=== PATIENT | female | born 1990 | race Caucasian/White ===

== ENCOUNTER 2016-07-03 10:33 | Outpatient (CLI) | payer OTHER ==
[~2016-07-03] VITALS: Ht 165.1 cm; Wt 88.0 kg
[2016-07-03 10:54] VITALS: Ht 165.1 cm; Wt 88.0 kg
[2016-07-03] MEDS ORDERED: FOLI-49 PO (10:54)
[2016-07-03] MEDS ORDERED: CALC600T11 PO (10:54)
[2016-07-03] MEDS ORDERED: FER325 PO (10:54)
[2016-07-03] MEDS ORDERED: PRENAT PO (10:54)
[2016-07-03 10:55] VITALS: BP 112/59; PULSE 83; RESP 18
--- NOTE | 2016-07-03 13:32 | CONS ---
Date/Time of Note Date/Time of Note DATE: 07/03/16 TIME: 13:25 Consultation Date/Type/Reason Admit Date/Time Initial Consult Date July 03, 2016. OB triage report This patient is a 26 years old 3 para 2; 1 delivery at term and another one premature delivery at 22 weeks gestation which did not survive. She was having a fairly regular periods Her due date is is October 28, 2016 which makes her 23 weeks and 2 days Her main complaint is a generalized abdominal pain since 4 PM yesterday On examination she is a well-developed well-nourished lady in no acute distress her blood pressure 112/59 pulse rate 83 temperature 98.5 and oxygen saturation is 95' her body weight is 88 kg. On examination as I mentioned the abdomen was soft. heart tone is normal. No contraction was noted during this visit she has a slight tenderness of mid abdomen no rebound no CVA tenderness Basically due to negative examination. Reassurance given to the patient and discharged home to be followed in her own clinic. However she was cautioned regarding her condition For any vaginal bleeding or severe pain she should return to the triage for further evaluation 24 HR Interval Summary Constitutional: No chills, No diaphoresis, No disoriented, No febrile, No improved, No no complaints, No other, No poor po, No requiring IVF, No requiring O2 Detailed Summary Eyes: No discharge, No no complaints, No other, No pain, No redness, No visual change ENT: No bleeding, No congestion, No discharge, No dysphagia, No no complaints, No other, No pain, No sore throat Respiratory: No cough, No no complaints, No other, No pain, No pleuritic pain, No shortness of breath, No sputum, No wheezing Cardiovascular: No chest pain, No edema, No lightheadedness, No no complaints, No orthopenea, No other, No palpitations, No paroxysmal nocturnal dyspnea Gastrointestinal: No blood, No constipation, No decreased appetite, No diarrhea , No flatus, No nausea, No no complaints, No other, No pain, No passing stool, No vomiting Genitourinary: No bleeding, No discharge, No dysuria, No flank pain, No hematuria, No no complaints, No other Musculoskeletal: No back pain, No bone/joint pain, No neck pain, No no complaints, No other, No restricted range of motion, No swelling Skin: No bruising, No erythema, No laceration, No no complaints, No other, No pruritis, No rash, No skin lesions Neurologic: No confusion, No dizziness, No focal-weakness, No headache, No no complaints, No other, No seizure, No syncope Endocrine: No dry skin, No no complaints, No other, No polydypsia, No polyuria , No temp intolerance Lymphatic: No adenopathy, No lymphadema, No no complaints, No other, No tender nodes Exam/Review of Systems Vital Signs Vitals Vital Signs Date Time Temp Pulse Resp B/P Pulse Ox O2 Delivery O2 Flow Rate FiO2 07/03/16 10:55 98.5 83 18 112/59 95 Room Air MARLA HARRISON MD Jul 03, 2016 13:32
== END 2016-07-03 11:40 | disposition home or self-care (01) ==
LOC: OBT 10:33 → L-D 10:34 → OBT 11:40
PROVIDERS: ATTEND Obstetrics & Gynecology
DX: O60.02 Preterm labor without delivery, second trimester (principal); Z3A.23 23 weeks gestation of pregnancy
CPT/HCPCS: G0463

== ENCOUNTER 2016-10-16 12:42 | Outpatient (CLI) | payer OTHER ==
[~2016-10-16] VITALS: Ht 165.1 cm; Wt 94.4 kg
[~2016-10-16 12:42] MED LIST: CALC600T11 PO; FER325 PO; FOLI-49 PO; PRENAT PO
--- NOTE | 2016-10-16 13:29 | RADRPT ---
PROCEDURE: US OB biophysical profile. CLINICAL INDICATION: decreased movements TECHNIQUE: Multiple sonographic images of the pelvis were obtained. The images were reviewed on a PACS workstation. COMPARISON: No prior studies are available for comparison. FINDINGS: There is a single viable intrauterine gestation. Cardiac activity is present with 130 beats per min stone. There is a vertex presentation. The placenta is right lateral. There is no evidence of placental abruption. There is a normal amount of amniotic fluid with an LEONIE = 8.2 cm. Biophysical profile: movement 2/2 tone 2/2. breathing 2/2 LEONIE 2/2 Total 12/11 RPTAT: AA . IMPRESSION: Normal biophysical profile. . .Gino Salinas MD, MD Date Time Electronically viewed and signed by .Gino Salinas MD, MD on 10/16/2016 13:29 .S/
[2016-10-16 13:49] VITALS: BP 111/55; PULSE 77; RESP 18; Ht 165.1 cm; Wt 94.4 kg
--- NOTE | 2016-10-16 15:42 | CONS ---
Date/Time of Note Date/Time of Note DATE: 10/16/16 TIME: 15:37 Consultation Date/Type/Reason Admit Date/Time October 16, 2069 OB triage consult Reason for Consultation This patient is a 26 years old 3 para 2 with estimated date of confinement of October 22, 2016 which makes her 38 weeks and 2 days. She came to the triage complaining of low movement since yesterday On examination she is a well-developed well-nourished lady at term in no acute distress Her abdomen is soft fetus appears to be in vertex presentation heart tone is normal tracing is perfect with good variability and acceleration no B- cell Her general vital signs are normal with blood pressure of 111/50, pulse rate 76 , respiration 18, temperature 98.1, and oxygen and room temperature is 96%. Constitutional: No chills, No diaphoresis, No disoriented, No febrile, No improved, No no complaints, No other, No poor po, No requiring IVF, No requiring O2 Eyes: No discharge, No no complaints, No other, No pain, No redness, No visual change ENT: No bleeding, No congestion, No discharge, No dysphagia, No no complaints, No other, No pain, No sore throat Respiratory: no complaints, No cough, No other, No pain, No pleuritic pain, No shortness of breath, No sputum, No wheezing Cardiovascular: No chest pain, No edema, No lightheadedness, No no complaints, No orthopenea, No other, No palpitations, No paroxysmal nocturnal dyspnea Gastrointestinal: No blood, No constipation, No decreased appetite, No diarrhea , No flatus, No nausea, No no complaints, No other, No pain, No passing stool, No vomiting Genitourinary: other (Due to lack of contraction pelvic exam was not performed) , No bleeding, No discharge, No dysuria, No flank pain, No hematuria, No no complaints Musculoskeletal: No back pain, No bone/joint pain, No neck pain, No no complaints, No other, No restricted range of motion, No swelling Skin: No bruising, No erythema, No laceration, No no complaints, No other, No pruritis, No rash, No skin lesions Neurologic: No confusion, No dizziness, No focal-weakness, No headache, No no complaints, No other, No seizure, No syncope Endocrine: No dry skin, No no complaints, No other, No polydypsia, No polyuria , No temp intolerance Additional Comments On ultrasound study the report is a single viable intrauterine gestation with heart activity 130 bpm baby in vertex presentation placenta was on right lateral area no evidence of abruption or previa her amniotic fluid index was reported 8.2 cm the biophysical profile of 12/11 With these positive finding the patient was reassured and was 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 Social History Smoking Status: Never smoker Exam/Review of Systems Vital Signs Vitals Vital Signs Date Time Temp Pulse Resp B/P Pulse Ox O2 Delivery O2 Flow Rate FiO2 10/16/16 13:49 98.1 77 18 111/55 Room Air MARLA HARRISON MD Oct 16, 2016 15:42
--- NOTE | 2016-10-16 16:24 | TRIAGE ---
OB Triage Datetime Report Generated by CPN: 10/16/2016 16:24 Datetime: 10/16/2016 15:34 Labor Evaluation Frequency: X1 Monitor Mode: External Duration (sec)2399: 140 Pattern: Normal: <= 5 Contractions in 10 Minutes Resting Tone Kerr: Relaxed Contraction Comments: PT. DENIES FEELING UC'S OR PAIN Heart Rate FHR Baseline Rate: 125 Monitor Mode: External US Variability: Moderate 6-25 bpm Accelerations: 15X15 Decelerations: None Category: Category I Pain Assessment Pain Presence: None/Denies Datetime: 10/16/2016 15:00 Labor Evaluation Frequency: OCCASSIONAL Monitor Mode: External Duration (sec)2399: 60-120 Pattern: Normal: <= 5 Contractions in 10 Minutes Resting Tone Kerr: Relaxed Contraction Comments: PT. DENIES FEELING UC'S Heart Rate FHR Baseline Rate: 130 Monitor Mode: External US FHR Baseline Changes: No Baseline Change Variability: Moderate 6-25 bpm Accelerations: 15X15 Decelerations: None Category: Category I Pain Assessment Pain Presence: None/Denies Datetime: 10/16/2016 14:02 Labor Evaluation Frequency: X2 Monitor Mode: External Duration (sec)2399: 70-120 Pattern: Normal: <= 5 Contractions in 10 Minutes Resting Tone Kerr: Relaxed Heart Rate FHR Baseline Rate: 130 Monitor Mode: External US Variability: Moderate 6-25 bpm Accelerations: 15X15 Decelerations: None Category: Category I Datetime: 10/16/2016 13:46 Time of Arrival: 10/16/2016 12:40 EGA: 38.2 Arrived By: Ambulatory Arrived From: Home Chief Complaint: DECREASED MOVEMENT Movement: Decreased Contractions: Denies/Absent Rupture of Membranes: Denies Vaginal Bleeding: None Vaginal Discharge: Denies Recent Sexual Intercouse: Denies Abdominal Trauma: Not Applicable Patient Complaints: None Provider Notified: TIMMY Initial Plan: TOCO/US. NST AND BPP Datetime: 10/16/2016 13:10 Pain Assessment Pain Presence: None/Denies Datetime: 10/16/2016 13:07 Monitor Mode: External Monitor Mode: External US Datetime: 07/03/2016 10:52 Stage of : OB Triage Assessment Type: Triage Maternal Assessment Level of Consciousness: Fully Conscious DTR's/Clonus: DTRs 2+; No Clonus Headache: Denies Blurred Vision: No Respiratory Effort: Unlabored; Regular Rhythm; Equal Expansion Breath Sounds, Left: Clear and Equal Breath Sounds, Right: Clear and Equal Nausea/Vomiting: Denies RUQ Epigastric Pain: Denies Lower Extremities Edema: None Degree: None Upper Extremities Edema: None Degree: None Facial Edema: None Fall Risk Assessment History of Falling: (0) No Secondary Diagnosis: (0) No Ambulatory Aid: (0) Bedrest/Nurse Assist IV Therapy: (0) No Gait: (0) Normal/Bedrest/Immobile Mental Status: (0) Oriented to Own Ability Fall Score: 0 Fall Risk Score Definition: No Risk: No action required Datetime: 07/03/2016 10:49 Time of Arrival: 07/03/2016 10:29 EGA: 23.2 Arrived By: Ambulatory Arrived From: Home Chief Complaint: c/o constant soreness with movement Movement: Present Contractions: Denies/Absent Rupture of Membranes: Denies Vaginal Bleeding: None Vaginal Discharge: Denies Recent Sexual Intercouse: Denies Abdominal Trauma: Not Applicable Patient Complaints: None Time Provider Notified: 07/03/2016 11:05 Provider Notified: TIMMY Initial Plan: fht's, TOCO Datetime: 07/03/2016 10:44 Monitor Mode: External US
== END 2016-10-16 16:35 | disposition home or self-care (01) ==
LOC: OBT 12:42 → L-D 12:49 → OBT 16:35
PROVIDERS: ATTEND Obstetrics & Gynecology
DX: O36.8130 Decreased fetal movements, third trimester, not applicable or unspecified (principal); Z3A.38 38 weeks gestation of pregnancy
CPT/HCPCS: 76818; Z7500; G0463

== ENCOUNTER 2016-10-24 05:05 | Inpatient (IN) | payer OTHER ==
[~2016-10-24] VITALS: Ht 165.1 cm; Wt 95.5 kg
[2016-10-24 05:21] VITALS: BP 121/70; PULSE 74; RESP 16; Ht 165.1 cm; Wt 95.5 kg
[2016-10-24] MEDS ORDERED: LACTATED RINGER'S 1,000 ML IV SCH (05:21)
[2016-10-24] MEDS ORDERED: OXYTOCIN 30 UNITS/LR 500 ML IV SCH ×2 (05:30→15:16)
[2016-10-24] MEDS ORDERED: MISOPROSTOL 200 MCG TAB PR PRN ×2 (05:30→15:30)
[2016-10-24] MEDS ORDERED: OXYTOCIN 30 UNITS/LR 500 ML IV PRN ×2 (05:30→15:30)
[2016-10-24] MEDS ORDERED: METHYLERGONOVINE 0.2 MG INJ IM PRN ×2 (05:30→15:30)
[2016-10-24] MEDS ORDERED: CARBOPROST 250 MCG INJ IM PRN ×2 (05:30→15:30)
[2016-10-24] MEDS ORDERED: CEFAZOLIN 2 GM/50 ML (PMX) 50 ML IV SCH (05:30)
[2016-10-24] MEDS ORDERED: CITRIC ACID/SODIUM CITRATE 15 ML CUP PO ONE (05:30)
[2016-10-24 06:09] LABS: ADD SCAN DIFF NO
[2016-10-24 06:28] LABS: BASOPHILS % 0.2 % (0.0-2.0); EOSINOPHILS # 0.1 10^3/ul (0.0-0.5); EOSINOPHILS % 1.4 % (0.0-7.0); HEMATOCRIT 36.4 % (37.0-47.0); HEMOGLOBIN 12.6 g/dl (12.0-16.0); LYMPHOCYTES # 1.5 10^3/ul (0.8-2.9); LYMPHOCYTES % 22.9 % (15.0-51.0); MEAN CORPUSCULAR HEMOGLOBIN 32.1 pg (29.0-33.0); MEAN CORPUSCULAR HGB CONC 34.6 g/dl (32.0-37.0); MEAN CORPUSCULAR VOLUME 92.6 fl (82.0-101.0); MEAN PLATELET VOLUME 12.3 fl (7.4-10.4); MONOCYTE # 0.5 10^3/ul (0.3-0.9); MONOCYTES % 7.9 % (0.0-11.0); NEUTROPHIL # 4.4 10^3/ul (1.6-7.5); NEUTROPHILS % 66.7 % (39.0-77.0); PLATELET COUNT 138 10^3/UL (140-415); RED BLOOD COUNT 3.93 10^6/ul (4.20-5.40); WHITE BLOOD COUNT 6.6 10^3/ul (4.8-10.8)
[2016-10-24 06:48] LABS: INR 0.99; PROTIME 13.1 Sec (12.2-14.2)
[2016-10-24 06:50] LABS: PARTIAL THROMBOPLASTIN TIME 29.3 Sec (25.0-35.0)
[2016-10-24] MEDS ORDERED: OXYTOCIN 30 UNITS/LR 500 ML IV ONE (07:55)
[2016-10-24] MEDS ORDERED: EPHEDrine SULFATE 50 MG/5 ML SYG ONE (07:55)
[2016-10-24] MEDS ORDERED: morphine SULFATE/PF (10 MG/10 ML) INJ ONE (07:56)
[2016-10-24] MEDS ORDERED: OXYTOCIN 10 UNIT INJ ONE (07:56)
[2016-10-24] MEDS ORDERED: ONDANSETRON 4 MG INJ ONE (07:56)
[2016-10-24] MEDS ORDERED: METOCLOPRAMIDE 10 MG INJ ONE (07:56)
--- NOTE | 2016-10-24 08:18 | HP ---
Date/Time of Note Date/Time of Note DATE: 10/24/16 TIME: 08:08 OB - History Hx of Present Free Text/Dictation 26 years old female 3 para 2 history of 1 normal vaginal delivery 1 previous section ,. EDC October 31, 2006 admitted to [facility] at 39 weeks gestation for repeat . 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 Prior Estimated Due Date: Oct 31, 2016 : 3 Para: 2 Care: Good Care Ultrasounds: Normal mid trimester US Obstetrical Complications: None Medical Complications: None Past Family/Social History * Past Medical, Surgical, Family and Obstetric Histories reviewed from chart. Rubella: immune RPR/VDRL: Negative GBS Status: Negative HBsAG: Negative OB Admission Exam Vital Signs Vital Signs Vital Signs Date Time Temp Pulse Resp B/P Pulse Ox O2 Delivery O2 Flow Rate FiO2 10/24/16 05:21 98.0 74 16 121/70 Room Air Physical Exam HEENT: WNL Heart: Rhythm Normal Lungs: Clear, Equal Abdomen: WNL Extremities: Normal Reflexes: Normal Cervical Dilatation: None Station: -2 Membranes: Intact Heart Rate: 130's Decelerations: No Decelerations Varibility: Moderate Contractions on Admission: None Last 72 hours Lab Results CBC & BMP 10/24/16 05:20 OB Assessment/Plan Reason for admission: other (Repeat section) RADHA WARNER MD Oct 24, 2016 08:18
[2016-10-24] MEDS ORDERED: morphine 2 MG INJ IV PRN ×2 (09:30)
[2016-10-24] MEDS ORDERED: EPHEDrine SULFATE 50 MG/5 ML SYG IV PRN (09:30)
[2016-10-24] MEDS ORDERED: morphine SULFATE/PF (10 MG/10 ML) INJ SPINAL ONE (09:30)
[2016-10-24] MEDS ORDERED: ONDANSETRON 4 MG INJ IV PRN (09:30)
[2016-10-24] MEDS ORDERED: NALOXONE (0.4 MG/ML) INJ IV PRN (09:30)
[2016-10-24] MEDS ORDERED: HYDROmorphONE 1 MG/ML SYG IV PRN ×2 (09:30)
--- NOTE | 2016-10-24 10:08 | OPR ---
DATE OF OPERATION: 10/24/2016 PREOPERATIVE DIAGNOSES: 1. Intrauterine at 39 weeks' gestation. 2. History of previous section. POSTOPERATIVE DIAGNOSES: 1. Intrauterine at 39 weeks' gestation. 2. History of previous section. PROCEDURE PERFORMED: Repeat transverse low cervical section. SURGEON: Radha Davis MD RIP TAILER: Belkys Zambrano MD ANESTHESIA: Spinal. ANESTHESIOLOGIST: Morales Heath MD FINDINGS: Live baby boy with the 9 and 9. Baby weighed 3430 grams. DETAILS OF THE PROCEDURE: Under satisfactory spinal anesthesia, the patient was prepped and draped and placed in supine position, tilted to the left. Pfannenstiel incision was made, incision carried through the subcutaneous tissue. Bleeders brought under control with electrocautery. Fascia incis ed to the length of the incision. Rectus muscle divided in midline. Peritoneum exposed, entered th rough a transverse incision. Exploration of abdomen: Gravid uterus, normal-appearing tubes and ova bryanna, thinned out lower segment of the uterus to the thickness of 1 mm. Bladder flap was developed. Transverse incision was made in the lower segment of the uterus. Amniotic sac ruptured. Clear am niotic fluid noted. Live baby boy was delivered from unengaged vertex. Nasal oropharyngeal suction was performed. Baby handed to the team for immediate attention. The patient received 20 units of Pitocin. Placenta delivered manually intact. Uterine cavity cleaned with wet sponge and d rainage established. Uterus closed in 2 layers using Monocryl #1 in continuous fashion. Peritoneal cavity irrigated with warm saline. Sponge, needle and instrument reported to be correct. Abdominal peritoneum closed with 2-0 chromic catgut continuously. Rectus muscle approximated with a few interrupted 2-0 chromic catgut. Fascia closed with #1 PDS in continuous fashion. Subcutaneous tissue approximated with interrupted 2-0 chromic catgut. Skin closed with stefan. Estimated bloo d loss 600 mL. Urine bag contained 200 mL of clear urine. The patient tolerated the procedure well , transferred to recovery room in good condition. Dictated By: RADHA LORENZO/CASSIDY Conf#: [id number] DID#: [id number]
[2016-10-24] MEDS: DIPHENHYDRAMINE 50 MG INJ IV PRN ×2 (10:27→18:42)
[2016-10-24 15:15] VITALS: BP 123/71; PULSE 81; RESP 18
[2016-10-24] MEDS ORDERED: ACETAMINOPHEN/CODEINE #3 TAB PO PRN ×2 (15:30)
[2016-10-24] MEDS ORDERED: OXYCODONE/ACETAMINOPHEN (5/325) TAB PO PRN ×2 (15:30)
[2016-10-24] MEDS ORDERED: CEFAZOLIN 1 GM/50 ML (PMX) 50 ML IVPB SCH (15:30)
[2016-10-24] MEDS ORDERED: LANOLIN 7 GM TUBE TOP PRN (15:30)
[2016-10-24] MEDS: IBUPROFEN 600 MG TAB PO SCH (18:00)
[2016-10-24 20:00] VITALS: BP 113/57; PULSE 91; RESP 18
[2016-10-24] MEDS: SENNA/DOCUSATE NA (8.6MG/50MG) TAB PO SCH (21:00)
[2016-10-25] VITALS: BP 111/60; PULSE 93; RESP 18
[2016-10-25] MEDS: KETOROLAC 30 MG INJ IV PRN ×2 (00:41→08:00)
[2016-10-25 04:00] VITALS: BP 100/56; PULSE 80; RESP 18
[2016-10-25] MEDS: IBUPROFEN 600 MG TAB PO SCH ×5 (06:00→23:35)
[2016-10-25 07:54] LABS: ADD SCAN DIFF NO
[2016-10-25 08:00] VITALS: BP 102/56; PULSE 84; RESP 18
[2016-10-25 08:12] LABS: BASOPHILS % 0.3 % (0.0-2.0); EOSINOPHILS # 0.1 10^3/ul (0.0-0.5); EOSINOPHILS % 1.2 % (0.0-7.0); HEMATOCRIT 32.4 % (37.0-47.0); HEMOGLOBIN 11.4 g/dl (12.0-16.0); LYMPHOCYTES # 1.1 10^3/ul (0.8-2.9); MEAN CORPUSCULAR HEMOGLOBIN 32.7 pg (29.0-33.0); MEAN CORPUSCULAR HGB CONC 35.2 g/dl (32.0-37.0); MEAN CORPUSCULAR VOLUME 92.8 fl (82.0-101.0); MEAN PLATELET VOLUME 12.3 fl (7.4-10.4); MONOCYTE # 0.5 10^3/ul (0.3-0.9); MONOCYTES % 7.4 % (0.0-11.0); NEUTROPHIL # 5.2 10^3/ul (1.6-7.5); NEUTROPHILS % 74.5 % (39.0-77.0); PLATELET COUNT 120 10^3/UL (140-415); RED BLOOD COUNT 3.49 10^6/ul (4.20-5.40); WHITE BLOOD COUNT 6.9 10^3/ul (4.8-10.8)
[2016-10-25] MEDS: SENNA/DOCUSATE NA (8.6MG/50MG) TAB PO SCH ×2 (09:38→22:03)
--- NOTE | 2016-10-25 13:00 | PN ---
Date/Time of Note Date/Time of Note DATE: 10/25/16 TIME: 12:59 OB Subjective Subjective Subjective Post day 1 Afebrile vital signs stable abdomen soft moderately distended bowel sounds present able to pass flatus incision extremities normal ambulation encouraged Laboratory Tests Test 10/25/16 07:16 White Blood Count 6.910^3/ul Red Blood Count 3.4910^6/ul Hemoglobin 11.4g/dl Hematocrit 32.4% Mean Corpuscular Volume 92.8fl Mean Corpuscular Hemoglobin 32.7pg Mean Corpuscular Hemoglobin Concent 35.2g/dl Red Cell Distribution Width 13.0% Platelet Count 74417^3/UL Mean Platelet Volume 12.3fl Neutrophils % 74.5% Lymphocytes % 16.0% Monocytes % 7.4% Eosinophils % 1.2% Basophils % 0.3% Nucleated Red Blood Cells % 0.0/100WBC Neutrophils # 5.210^3/ul Lymphocytes # 1.110^3/ul Monocytes # 0.510^3/ul Eosinophils # 0.110^3/ul Basophils # 0.010^3/ul Nucleated Red Blood Cells # 0.010^3/ul Current Medications Medications (Trade) Dose Ordered Sig/Kailash Route PRN Reason Start Time Stop Time Status Last Admin Dose Admin Lactated Ringer's 1,000 ml @ 125 mls/hr Q8H IV 10/24/16 05:21 10/24/16 15:18 DC 10/24/16 05:59 Cefazolin Sodium/ Dextrose 50 ml @ 100 mls/hr ONCE IV 10/24/16 05:30 10/24/16 15:18 DC Oxytocin/Lactated Ringer's 500 ml @ 125 mls/hr ONCE IV 10/24/16 05:30 10/24/16 15:19 DC 10/24/16 10:25 Oxytocin/Lactated Ringer's 500 ml @ 0 mls/hr ONCE PRN IV For Hemorrhage Management 10/24/16 05:30 10/24/16 15:19 DC Methylergonovine Maleate (Methergine) 0.2 mg ONCE PRN IM VAGINAL BLEEDING 10/24/16 05:30 10/24/16 15:19 DC Carboprost Tromethamine (Hemabate) 250 mcg ONCE PRN IM VAGINAL BLEEDING 10/24/16 05:30 10/24/16 15:19 DC Misoprostol (Cytotec) 1,000 mcg ONCE PRN AR VAGINAL BLEEDING 10/24/16 05:30 10/24/16 15:19 DC Citric Acid/ Sodium Citrate (Bicitra) 30 ml ONCE ONCE PO 10/24/16 05:30 10/24/16 05:39 DC Naloxone HCl (Narcan) 0.1 mg Q2M PRN IV FOR RESP RATE 8 OR LESS 10/24/16 09:30 10/25/16 09:29 DC Ketorolac Tromethamine (Toradol) 30 mg Q6H PRN IV PAIN 10/24/16 09:30 10/25/16 09:29 DC 10/25/16 08:00 Morphine Sulfate (morphine) 2 mg Q3H PRN IV PAIN LEVEL 1-5 10/24/16 09:30 10/25/16 09:29 DC Morphine Sulfate (morphine) 4 mg Q3H PRN IV PAIN LEVEL 6-10 10/24/16 09:30 10/25/16 09:29 DC Hydromorphone HCl (Dilaudid) 0.2 mg Q3H PRN IV PAIN LEVEL 1-5 10/24/16 09:30 10/25/16 09:29 DC Hydromorphone HCl (Dilaudid) 0.4 mg Q3H PRN IV PAIN LEVEL 6-10 10/24/16 09:30 10/25/16 09:29 DC Diphenhydramine HCl (Benadryl) 25 mg Q6H PRN IV ITCHING 10/24/16 09:30 10/25/16 09:29 DC 10/24/16 18:42 Ondansetron HCl (Zofran Inj) 4 mg Q6H PRN IV NAUSEA AND/OR VOMITING 10/24/16 09:30 10/25/16 09:29 DC Morphine Sulfate (Duramorph) 0.3 mg GIVEN ANESTH ONCE SPINAL 10/24/16 09:30 10/24/16 09:31 DC Ephedrine Sulfate 5 mg [id number] PRN IV BLOOD PRESSURE SUPPORT 10/24/16 09:30 10/24/16 15:19 DC Acetaminophen/ Codeine Phosphate (Tylenol No.3) 1 tab Q4H PRN PO PAIN LEVEL 4-6 10/24/16 15:30 Acetaminophen/ Codeine Phosphate (Tylenol No.3) 2 tab Q4H PRN PO PAIN LEVEL 7-10 10/24/16 15:30 Oxycodone/ Acetaminophen (Percocet (5/ 325)) 1 tab Q4H PRN PO PAIN LEVEL 4-6 10/24/16 15:30 Oxycodone/ Acetaminophen (Percocet (5/ 325)) 2 tab Q4H PRN PO PAIN LEVEL 7-10 10/24/16 15:30 Ibuprofen (Motrin) 600 mg Q6 PO 10/24/16 18:00 Simethicone (Mylicon) 160 mg Q8H PRN PO DISTENSION/GAS/BLOATING 10/24/16 15:30 Senna/Docusate Sodium (Senokot-S) 1 tab BID PO 10/24/16 21:00 10/25/16 09:38 Lanolin (Yes-J-Jtlekm) 1 applic BEDSIDE MEDICATION PRN TOP BEDSIDE FOR BELKIS TO NIPPLES 10/24/16 15:30 Diphtheria/ Tetanus/Acell Pertussis 0.5 ml 0.5 ml ONCE ONCE IM* 10/27/16 09:00 10/27/16 09:01 Oxytocin/Lactated Ringer's 500 ml @ 0 mls/hr ONCE PRN IV For Hemorrhage Management 10/24/16 15:30 Methylergonovine Maleate (Methergine) 0.2 mg ONCE PRN IM VAGINAL BLEEDING 10/24/16 15:30 Carboprost Tromethamine (Hemabate) 250 mcg ONCE PRN IM VAGINAL BLEEDING 10/24/16 15:30 Misoprostol 1000 mcg 1,000 mcg ONCE PRN AR VAGINAL BLEEDING 10/24/16 15:30 Cefazolin Sodium 50 ml @ 100 mls/hr ONCE IVPB 10/24/16 15:30 10/24/16 15:59 DC 10/24/16 15:33 Oxytocin/Lactated Ringer's 500 ml @ 125 mls/hr Q4H IV 10/24/16 15:16 10/25/16 09:10 DC 10/24/16 15:32 Ephedrine Sulfate 50 mg 50 mg STK-MED ONCE .ROUTE 10/24/16 07:55 10/24/16 17:53 DC Oxytocin/Lactated Ringer's 500 ml @ ud STK-MED ONCE IV 10/24/16 07:55 10/24/16 17:53 DC Ondansetron HCl (Zofran Inj) 4 mg STK-MED ONCE .ROUTE 10/24/16 07:56 10/24/16 17:53 DC Metoclopramide HCl (Reglan) 10 mg STK-MED ONCE .ROUTE 10/24/16 07:56 10/24/16 17:55 DC Oxytocin (Oxytocin) 10 units STK-MED ONCE .ROUTE 10/24/16 07:56 10/24/16 17:55 DC Morphine Sulfate (Duramorph) 10 mg STK-MED ONCE .ROUTE 10/24/16 07:56 10/24/16 17:55 DC RADHA WARNER MD Oct 25, 2016 13:00
[2016-10-25 16:00] VITALS: BP 109/63; PULSE 76; RESP 18
[2016-10-25 20:00] VITALS: BP 110/54; PULSE 80; RESP 18
[2016-10-26 04:00] VITALS: BP 107/54; PULSE 70; RESP 18
[2016-10-26] MEDS: IBUPROFEN 600 MG TAB PO SCH ×3 (05:07→18:23)
[2016-10-26 08:00] VITALS: BP 107/57; PULSE 65; RESP 18
[2016-10-26] MEDS: SENNA/DOCUSATE NA (8.6MG/50MG) TAB PO SCH ×2 (09:36→20:57)
[2016-10-26 11:25] LABS: RUBELLA ANTIBODY - IGG <0.90 index
--- NOTE | 2016-10-26 15:23 | PN ---
Date/Time of Note Date/Time of Note DATE: 10/26/16 TIME: 15:21 OB Subjective Subjective Subjective Post day 2 Afebrile vital signs are stable abdomen soft bowel sounds present normal bowel movement ,incision dry lochia moderate extremity normal RADHA WARNER MD Oct 26, 2016 15:23
[2016-10-26 16:00] VITALS: BP 122/66; PULSE 62; RESP 18
[2016-10-26 20:30] VITALS: BP 102/53; PULSE 65; RESP 18
[2016-10-27] MEDS: IBUPROFEN 600 MG TAB PO SCH ×3 (00:48→12:35)
[2016-10-27 04:00] VITALS: BP 100/50; PULSE 128; RESP 17
[2016-10-27 07:50] VITALS: BP 124/71; PULSE 58; RESP 17
[2016-10-27] MEDS ORDERED: DIPHTH/TET/ACEL PERTUSS (ADULT) 0.5 ML VIAL IM* ONE (09:00)
[2016-10-27] MEDS: SENNA/DOCUSATE NA (8.6MG/50MG) TAB PO SCH (09:23)
--- NOTE | 2016-10-27 11:24 | PD.PPDC ---
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
--- NOTE | 2016-10-27 11:26 | DS ---
Date/Time of Note Date/Time of Note DATE: 10/27/16 TIME: 11:25 Discharge Summary Admission/Discharge Info Admit Date/Time Oct 24, 2016 at 05:05 Discharge Date/Time October 27, 2016 at 1120 Discharge Diagnosis Post date 3 Patient Condition: Good Procedures Repeat Hx of Present Illness Term history of previous Hospital Course Satisfactory uneventful Home Meds Reported Medications Folic Acid* (Folic Acid*) 1 Mg Tablet, 1 MG PO DAILY, TAB 07/03/16 Calcium Carbonate* (Calcium Carbonate*) 600 MG Ca Tab, 600 MG PO DAILY, TAB 07/03/16 Ferrous Sulfate* (Ferrous Sulfate*) 325 Mg Tabec, 325 MG PO DAILY, TAB 07/03/16 Multivit/Min/Fol Ac/Iron/Pren* ( S*) 1 Tab Tab, 1 TAB PO DAILY, TAB 07/03/16 Follow-up Plan Appointment clinic in 4 days to discontinue stefan Primary Care Provider [facility] Time spent on discharge: < 30 minutes RADHA WARNER MD Oct 27, 2016 11:26
== END 2016-10-27 14:45 | disposition home or self-care (01) | DRG 766 ==
LOC: L-D 05:05 → PP1 14:52
PROVIDERS: ADMIT Obstetrics & Gynecology; ATTEND Obstetrics & Gynecology
PROC: 10D00Z1 Extraction of Products of Conception, Low, Open Approach (ICD-10-PCS; principal; 2016-10-24 07:30)
DX: O34.211 Maternal care for low transverse scar from previous cesarean delivery (principal); N85.8 Other specified noninflammatory disorders of uterus; Z3A.39 39 weeks gestation of pregnancy; Z37.0 Single live birth
CPT/HCPCS: 85025; 85610; 85730; 86592; 86703; 86762; 86850; 86900; 86901; 87340; 90715; 99464; J0690; J1200; J1885; J2274; J2405; J2590; J2765; J7120

== ENCOUNTER 2017-01-18 18:14 | Emergency (ER) | payer OTHER ==
[~2017-01-18] VITALS: Ht 165.1 cm; Wt 89.0 kg
[~2017-01-18 18:14] MED LIST changes: -CALC600T11 PO; +CALC600T24 PO
[2017-01-18 18:17] VITALS: Ht 165.1 cm; Wt 89.0 kg
[2017-01-18] MEDS ORDERED: KETOROLAC 30 MG INJ IV STA (18:31)
[2017-01-18 19:03] LABS: BASOPHILS % 0.6 % (0.0-2.0); EOSINOPHILS # 0.2 10^3/ul (0.0-0.5); EOSINOPHILS % 2.4 % (0.0-7.0); HEMATOCRIT 38.6 % (37.0-47.0); HEMOGLOBIN 13.6 g/dl (12.0-16.0); LYMPHOCYTES # 2.4 10^3/ul (0.8-2.9); LYMPHOCYTES % 34.2 % (15.0-51.0); MEAN CORPUSCULAR HEMOGLOBIN 32.1 pg (29.0-33.0); MEAN CORPUSCULAR HGB CONC 35.2 g/dl (32.0-37.0); MONOCYTE # 0.5 10^3/ul (0.3-0.9); MONOCYTES % 7.4 % (0.0-11.0); NEUTROPHIL # 3.9 10^3/ul (1.6-7.5); PLATELET COUNT 202 10^3/UL (140-415); RED BLOOD COUNT 4.24 10^6/ul (4.20-5.40); WHITE BLOOD COUNT 7.1 10^3/ul (4.8-10.8)
[2017-01-18 19:08] LABS: ADD UMIC NO; UR ASCORBIC ACID NEGATIVE (NEGATIVE); UR BILIRUBIN (Dip) NEGATIVE (NEGATIVE); UR BLOOD (Dip) NEGATIVE (NEGATIVE); UR CLARITY CLEAR (CLEAR); UR COLOR YELLOW (YELLOW); UR GLUCOSE (Dip) NEGATIVE (NEGATIVE); UR KETONES (Dip) NEGATIVE (NEGATIVE); UR LEUKOCYTE ESTERASE (Dip) NEGATIVE Leu/ul (NEGATIVE); UR NITRITE (Dip) NEGATIVE (NEGATIVE); UR SPECIFIC GRAVITY (Dip) 1.021 (1.003-1.030); UR TOTAL PROTEIN (Dip) NEGATIVE (NEGATIVE); UR UROBILINOGEN (Dip) NEGATIVE (NEGATIVE)
[2017-01-18 19:25] LABS: ALBUMIN 4.4 g/dl (3.3-4.9); ALBUMIN/GLOBULIN RATIO 1.25; BILIRUBIN,INDIRECT 0.3 mg/dl (0-1.1); BILIRUBIN,TOTAL 0.3 mg/dl (0.2-1.3); CALCIUM 9.2 mg/dl (8.4-10.2); CREATININE 0.67 mg/dl (0.44-1.00); POTASSIUM 4.2 mmol/L (3.5-5.1); TOTAL PROTEIN 7.9 g/dl (6.1-8.1)
[2017-01-18] MEDS ORDERED: SOD CHLORIDE 0.9% 100 ML ONE (19:47)
[2017-01-18] MEDS ORDERED: IOHEXOL 300MG/ML 150 ML BTL ONE (19:47)
--- NOTE | 2017-01-18 20:39 | RADRPT ---
PROCEDURE: CT Abdomen and Pelvis with contrast. CLINICAL INDICATION: Abdominal pain. TECHNIQUE: CT scan of the abdomen and pelvis with contrast was performed on a multi-detector high- resolution CT scanner. The patient was scanned following the uncomplicated intravenous administrati on of 100 cc of Omnipaque 300. Coronal and sagittal reformatted images were obtained from the axial source images. One or more of the following dose reduction techniques were used: Automated exposur e control, adjustment of the mA and/or kV according to patient size, use of iterative reconstructio n technique. Images were reviewed on a high-resolution PACS workstation. The total exam CTDI equals 18.44 mGy and the total exam DLP equals 1048.57 mGy-cm. COMPARISON: None available. FINDINGS: CT abdomen: Minimal bilateral lower lobe dependent atelectatic changes are present. Otherwise, the lung bases are clear. The heart size is normal, without pericardial thickening or effusion. The liver is normal in size and density without focal mass or intrahepatic biliary dilatation. The spleen is normal in size and homogeneous in density. The stomach is partially collapsed, but is amie ssly unremarkable. The pancreas as visualized is normal. The gallbladder is unremarkable. The iglesia iary tree is unremarkable without evidence for biliary dilatation. The adrenal glands are symmetric and normal. The kidneys are unremarkable. No renal calculus or obstructive uropathy or mass lesio n is seen. The aorta is of normal caliber. There is no retroperitoneal lymphadenopathy. The angeline hepatis re gion is clear. The small bowel and mesentery, as visualized, are unremarkable. CT pelvis: The small bowel loops situated within the pelvis are unremarkable. The pelvic organs are normal. T he pelvic sidewalls and inguinal regions are clear. The sigmoid colon and rectum are unremarkable. The appendix is normal. No mass, lymphadenopathy, or free fluid is seen. The bladder is normal. The surrounding osseous structures are unremarkable. No osteolytic or osteoblastic lesion is detect ed. IMPRESSION: No mass, lymphadenopathy, or focal acute inflammatory process is identified. RPTAT: RR .Александр Francisco MD, MD Date Time Electronically viewed and signed by .Александр Francisco MD, MD on 01/18/2017 20:39 .A/
[2017-01-18] MEDS ORDERED: IBUP400T22 PO (20:42)
--- NOTE | 2017-01-18 20:49 | ERD ---
ER Documentation Chief Complaint Date/Time DATE: 01/18/17 TIME: 20:43 Chief Complaint abdominal pain since yesterday, had 2 months ago HPI Patient is a 26-year-old female who presents to the emergency department for concerns of 3 days of pelvic pain. Patient underwent a approximately 2 months ago.She denies any postoperative complications. Patient denies any redness or swelling around her incision site. Patient states the pain is localized to her lower pelvic region. Patient denies any fevers, chills, nausea , vomiting, upper abdominal pain, excessive vaginal bleeding or discharge.. Patient does have some denies body aches. Patient reports some back pain. She denies any saddle anesthesia, urinary incontinence, stool incontinence, dysuria , hematuria or flank pain. Patient denies any recent trauma or falls. Patient' s FRIT BURNER is Ryan. ROS All systems reviewed and are negative except as per history of present illness. Medications Home Meds Active Scripts Ibuprofen* (Motrin*) 400 Mg Tab, 400 MG PO Q6, #30 TAB Prov:DILIP GREY PA-C 01/18/17 Reported Medications Folic Acid* (Folic Acid*) 1 Mg Tablet, 1 MG PO DAILY, TAB 07/03/16 Calcium Carbonate* (Calcium Carbonate*) 600 MG Ca Tab, 600 MG PO DAILY, TAB 07/03/16 Ferrous Sulfate* (Ferrous Sulfate*) 325 Mg Tabec, 325 MG PO DAILY, TAB 07/03/16 Multivit/Min/Fol Ac/Iron/Pren* ( S*) 1 Tab Tab, 1 TAB PO DAILY, TAB 07/03/16 Allergies Allergies: Coded Allergies: No Known Allergy (Unverified , 01/18/17) PMhx/Soc Medical and Surgical Hx: pt denies Medical Hx History of Surgery: Yes (C SECTION ) Anesthesia Reaction: No Hx Neurological Disorder: No Hx Respiratory Disorders: No Hx Cardiac Disorders: No Hx Psychiatric Problems: No Hx Miscellaneous Medical Probl: No Hx Alcohol Use: No Hx Substance Use: No Hx Tobacco Use: No Smoking Status: Never smoker Physical Exam Vitals Vital Signs Date Time Temp Pulse Resp B/P Pulse Ox O2 Delivery O2 Flow Rate FiO2 01/18/17 20:56 98.1 75 18 122/76 99 Room Air 01/18/17 18:17 98.2 65 18 124/75 97 Physical Exam GENERAL: Well-developed, well-nourished female. Appears in no acute distress. HEAD: Normocephalic, atraumatic. EYES: Pupils are equally reactive bilaterally. EOMs grossly intact. No conjunctival erythema. ENT: Moist mucous membranes. No uvula deviation. No kissing tonsils. NECK: Supple. No meningismus. Normal range of motion of the neck. LUNG: Clear to auscultation bilaterally. No rhonchi, wheezing, rales or coarse breath sounds. HEART: Regular rate and rhythm. No murmurs, rubs or gallops. ABDOMEN: 12 cm linear, healing incision noted above the pubic symphysis. No erythema warmth. No wound dehiscence. No active bleeding or discharge.Patient is tender to palpation in the suprapubic region.Positive bowel sounds in all four quadrants. No rebound tenderness, no guarding. (-) McBurney's point tenderness. No CVA tenderness. BACK: No midline tenderness. EXTREMITIES: Equal pulses bilaterally. No peripheral clubbing, cyanosis or edema. No unilateral leg swelling. NEUROLOGIC: Alert and oriented. Moving all four extremities without any difficulty. Normal speech. Steady gait. SKIN: Normal color. Warm and dry. No rashes or lesions. Result Diagram: 01/18/17183401/18/17 1835 Results 24 hrs Laboratory Tests Test 01/18/17 18:35 White Blood Count 7.110^3/ul Red Blood Count 4.2410^6/ul Hemoglobin 13.6g/dl Hematocrit 38.6% Mean Corpuscular Volume 91.0fl Mean Corpuscular Hemoglobin 32.1pg Mean Corpuscular Hemoglobin Concent 35.2g/dl Red Cell Distribution Width 12.0% Platelet Count 27979^3/UL Mean Platelet Volume 13.0fl Neutrophils % 55.0% Lymphocytes % 34.2% Monocytes % 7.4% Eosinophils % 2.4% Basophils % 0.6% Nucleated Red Blood Cells % 0.0/100WBC Neutrophils # 3.910^3/ul Lymphocytes # 2.410^3/ul Monocytes # 0.510^3/ul Eosinophils # 0.210^3/ul Basophils # 0.010^3/ul Nucleated Red Blood Cells # 0.010^3/ul Urine Color YELLOW Urine Clarity CLEAR Urine pH 5.0 Urine Specific [place] 1.021 Urine Ketones NEGATIVEmg/dL Urine Nitrite NEGATIVEmg/dL Urine Bilirubin NEGATIVEmg/dL Urine Urobilinogen NEGATIVEmg/dL Urine Leukocyte Esterase NEGATIVELeu/ul Urine Hemoglobin NEGATIVEmg/dL Urine Glucose NEGATIVEmg/dL Urine Total Protein NEGATIVEmg/dl Sodium Level 142mmol/L Potassium Level 4.2mmol/L Chloride Level 104mmol/L Carbon Dioxide Level 30mmol/L Anion Gap 12 Blood Urea Nitrogen 17mg/dl Creatinine 0.67mg/dl Glucose Level 89mg/dl Calcium Level 9.2mg/dl Total Bilirubin 0.3mg/dl Direct Bilirubin 0.00mg/dl Indirect Bilirubin 0.3mg/dl Aspartate Amino Transf (AST/SGOT) 31IU/L Alanine Aminotransferase (ALT/SGPT) 76IU/L Alkaline Phosphatase 84IU/L Total Protein 7.9g/dl Albumin 4.4g/dl Globulin 3.50g/dl Albumin/Globulin Ratio 1.25 Lipase 100U/L Current Medications Medications (Trade) Dose Ordered Sig/Kailash Route PRN Reason Start Time Stop Time Status Last Admin Dose Admin Ketorolac Tromethamine (Toradol) 30 mg ONCE STAT IV 01/18/17 18:31 01/18/17 18:33 DC 01/18/17 18:43 IV Flush 10 ml 10 ml STK-MED ONCE .ROUTE 01/18/17 19:47 01/18/17 19:48 DC 01/18/17 20:20 Sodium Chloride (NS) 100 ml @ ud STK-MED ONCE .ROUTE 01/18/17 19:47 01/18/17 19:48 DC 01/18/17 20:20 Iohexol (Omnipaque 300mg/ ml) 150 ml STK-MED ONCE .ROUTE 01/18/17 19:47 01/18/17 19:48 DC 01/18/17 20:21 Procedures/MDM ED COURSE: The patient was stable throughout ED course. I kept the patient and/or family informed of laboratory and diagnostic imaging results throughout the ED course. DIAGNOSTIC IMAGING: Read by radiologist. Patient: JOAN PAUL : 1990 Age: 26 Sex: F MR #: [id number] DOS: 01/18/17 1831 Ordering MD: DILIP GREY PA-C Location: [facility] Room/Bed: PROCEDURE: CT Abdomen and Pelvis with contrast. CLINICAL INDICATION: Abdominal pain. TECHNIQUE: CT scan of the abdomen and pelvis with contrast was performed on a multi-detector high-resolution CT scanner. The patient was scanned following the uncomplicated intravenous administration of 100 cc of Omnipaque 300. Coronal and sagittal reformatted images were obtained from the axial source images. One or more of the following dose reduction techniques were used: Automated exposure control, adjustment of the mA and/or kV according to patient size, use of iterative reconstruction technique. Images were reviewed on a high -resolution PACS workstation. The total exam CTDI equals 18.44 mGy and the total exam DLP equals 1048.57 mGy-cm. COMPARISON: None available. FINDINGS: CT abdomen: Minimal bilateral lower lobe dependent atelectatic changes are present. Otherwise, the lung bases are clear. The heart size is normal, without pericardial thickening or effusion. The liver is normal in size and density without focal mass or intrahepatic biliary dilatation. The spleen is normal in size and homogeneous in density. The stomach is partially collapsed, but is grossly unremarkable. The pancreas as visualized is normal. The gallbladder is unremarkable. The biliary tree is unremarkable without evidence for biliary dilatation. The adrenal glands are symmetric and normal. The kidneys are unremarkable. No renal calculus or obstructive uropathy or mass lesion is seen. The aorta is of normal caliber. There is no retroperitoneal lymphadenopathy. The angeline hepatis region is clear. The small bowel and mesentery, as visualized , are unremarkable. CT pelvis: The small bowel loops situated within the pelvis are unremarkable. The pelvic organs are normal. The pelvic sidewalls and inguinal regions are clear. The sigmoid colon and rectum are unremarkable. The appendix is normal. No mass, lymphadenopathy, or free fluid is seen. The bladder is normal. The surrounding osseous structures are unremarkable. No osteolytic or osteoblastic lesion is detected. IMPRESSION: No mass, lymphadenopathy, or focal acute inflammatory process is identified. RPTAT: RR .Александр Francisco MD, MD Date Time Electronically viewed and signed by .Александр Francisco MD, MD on 01/18/2017 20:39 .A/ CC: DILIP GREY PA-C PROCEDURES: None. MEDICATIONS GIVEN: Toradol Patient tolerated medication well with no adverse reactions. Patient reported improvement in pain. MEDICAL DECISION MAKING: This is a 26-year-old female who presents with pelvic pain 3 days. Patient does have a history of a 2 months ago. Patient denies any postoperative complications. Vital signs were reviewed. Patient is afebrile. Abdominal exam revealed healing incision with no signs of wound dehiscence or infection. CBC showed no evidence of systemic infection or severe anemia. CMP showed no evidence of electrolyte abnormalities, severe acidosis, alkalosis, renal failure, or liver disease. Lipase showed no evidence of acute pancreatitis. UA showed no evidence of acute infection or hematuria. Low suspicion for UTI, pyelonephritis or nephrolithiasis. Urine test was negative. CT abdomen and pelvis with IV contrast was obtained. CT abdomen pelvis was essentially negative. At this time, the patient's presentation is most consistent with pelvic pain of unknown etiology. Patient's pain may be due to postoperative changes. Low suspicion for deep space infection, abscess formation, acute coronary syndrome, mesenteric ischemia, DKA, bowel perforation , bowel obstruction, cholecystitis, choledocholithiasis, pancreatitis, diverticulitis, UTI, pyelonephritis, nephrolithiasis, appendicitis, tubo- ovarian abscess. PRESCRIPTIONS: Ibuprofen DISCHARGE: At this time, patient is stable for discharge and outpatient management.Patient was given a copy of all imaging and blood work obtained today. Patient was encouraged to follow-up with her FRIT BURNER Dr. Davis in the next 1 to 2 days. I have instructed the patient to follow-up with his/her primary care physician in 1-2 days. I have instructed the patient to promptly return to the ER at any time for any new or worsening symptoms including increased pain, nausea, vomiting, diarrhea, fever, weakness or LOC. The patient and/or family expressed understanding of and agreement with this plan. All questions were answered. Home care instructions were provided. Disclaimer: Inadvertent spelling and grammatical errors are likely due to EHR/ dictation software use and do not reflect on the overall quality of patient care. Also, please note that the electronic time recorded on this note does not necessarily reflect the actual time of the patient encounter. Departure Diagnosis: Primary Impression: Pelvic pain Condition: Stable Patient Instructions: Pelvic Pain, Unknown Cause Additional Instructions: Call your primary care doctor/ OBGYN TOMORROW for an appointment during the next 1-2 days.See the doctor sooner or return here if your condition worsens before your appointment time. DILIP GREY PA-C Jan 18, 2017 20:49
[2017-01-18 20:56] VITALS: BP 122/76; PULSE 75; RESP 18; TEMP 98.1
== END 2017-01-18 20:57 | disposition home or self-care (01) ==
LOC: FTE 18:14
DX: R10.2 Pelvic and perineal pain (principal)
CPT/HCPCS: 36415; 74177; 80053; 81003; 83690; 85025; 96374; J1885; Q9967; Z7502; Z7610